=== PATIENT | female | born 1995 | race Caucasian/White ===

== ENCOUNTER 2018-07-01 00:01 | Emergency (ER) | payer BC ==
--- NOTE | 2018-07-01 00:26 | EDPHY ---
General - History Smoking Status: Never smoked <Luciana Jarrett - Last Filed: 07/01/18 02:18> - Diagnostics Imaging: I viewed and interpreted images myself <Santiago Leal - Last Filed: 07/01/18 03:37> Time Seen by Provider: 07/01/18 00:26 Narrative: CLINICAL IMPRESSION: Head injury ASSESSMENT/PLAN: Patient is a 22-year-old female who presents to the emergency department after sustaining a head injury with positive LOC just prior to arrival. Patient is uncomfortable appearing on arrival however not toxic-appearing. The fall was witnessed, there was a positive loss of consciousness. Patient is clinically intoxicated, her neurological exam is grossly normal with no focal deficit. Head CT revealed no evidence of intracranial hemorrhage or skull fracture. History and physical examination is consistent with concussion with positive LOC. The patient was observed for a period of time, she continued to have a severe headache and nausea. An IV was established and she was given Reglan and Benadryl in addition to the Zofran that she received on arrival. On repeat examination her neurological exam is still grossly normal without focal deficit , her vital signs remained stable. The patient will continue to be observed in the emergency department and we will await symptom improvement. I discussed this case personally with Dr. Leal who will resume care of this patient at this time. DIFFERENTIAL DX: Head injury including but not limited to concussion, skull fracture, intraparenchymal contusion, subarachnoid, subdural and epidural hematoma. ED COURSE: 0055: Dr. Leal evaluated this patient. Will proceed with IV fluids, more aggressive pain control and additional antiemetic. 0205: Dr. Leal will resume care of this patient at this time. I have discussed all aspects of this patient's care with him. CHIEF COMPLAINT: Head injury, headache, nausea HPI: Patient is a 22-year-old female who presents to the emergency department after she sustained a head injury when she fell to the ground. Patient reports she was out drinking with 1 of her friends, she was trying to assist 1 of her friends and walking when her friend tripped and fell to the ground. She subsequently fell to the ground causing her to hit the left side of her head. This was witnessed by the person she is within the emergency department, there was a brief positive LOC. Patient is clinically intoxicated, admitted to having approximately 5 to kill a drinks this evening. Patient presents with significant headache and multiple episodes of emesis. She is not on any anticoagulation or anti-platelet therapy. She has had no additional altered mentation, retrograde amnesia or posttraumatic seizure. Patient does have a history of remote subarachnoid cyst which was removed when she was 11 years old. Patient denies any visual changes or vision loss, she has no numbness or tingling of extremities, she has been able to ambulate with a normal gait. She has had multiple episodes of emesis, denies any hematemesis. She has had no chest pain, shortness of breath or abdominal pain. PMH: Denies Pertinent Past Surgical History: Subarachnoid cystectomy Family History: Noncontributory Social History: Alcohol use, denies illicit drug use or cigarette smoking REVIEW OF SYSTEMS: All other systems negative Constitutional: No fever, no chills, appetite change. Eyes: No discharge, vision change ENT: No sore throat, congestion, ear pain. Cardiovascular: No chest pain, no palpitations. Respiratory: No cough, no shortness of breath. Gastrointestinal: Nausea and vomiting. Genitourinary: No hematuria, dysuria, flank pain, pelvic pain Musculoskeletal: No back pain, joint swelling, joint pain, myalgias. Skin: No rashes, color change. Neurological: Headache. PHYSICAL EXAM: General Appearance: Well-developed, very uncomfortable appearing however not toxic-appearing. HENT: Normocephalic, atraumatic. Bilateral external ears are normal. Bilateral tympanic membranes are normal with pearly neal reflex- no evidence of hemotympanum bilaterally. No Merchant sign or raccoon eyes. Nares are clear, mucosa is pink. Oropharynx is clear, uvula is midline. There is no tonsillar enlargement or exudate. The dentition is normal. Eyes: PERRLA, EOMI intact without evidence of entrapment. Conjunctiva pink, no pallor or injection Neck: Supple, nontender, no lymphadenopathy, no midline pain, FROM, no meningismus. Respiratory: There are no retractions, lungs are clear to auscultation. Cardiac: Regular rate and rhythm, no murmurs or gallops. Gastrointestinal: Abdomen is soft, nontender, bowel sounds normal, no masses/ hernia, no rigidity, guarding or focal peritoneal findings. Neuro: MENTAL STATUS: Patient is alert and oriented to person, place, time, and situation. Recent and remote memory are intact. Attention and concentration are normal. Found knowledge is appropriate to level of education. Mood and affect normal. SPEECH: Language including naming, repetition, comprehension, and spontaneous speech are normal. No dysarthria or dysphagia. CRANIAL NERVES: II: Visual huerta are full to confrontation. Vision is grossly intact. III, IV, : Pupils are equal, round, reactive to light. Extraocular eye movements are full and without nystagmus. V: Facial sensation is intact to touch symmetrically in all 3 divisions. VII: Face is symmetric at rest with no asymmetry of grimace or evidence of facial weakness. VIII: Hearing is intact bilaterally to finger rub. IX, X: Palate is midline and elevates symmetrically with intact cough/gag. XI: Sternocleidomastoid and trapezius strength is normal. XII: Tongue protrudes midline without atrophy or fasciculations. MOTOR: Normal bulk and tone symmetrically in the upper and lower extremities. Upper extremities: shoulder abduction, elbow flexion, elbow extension, flexion of fingers and finger abduction strength 5/5 bilaterally. Lower extremities: hip flexion, knee flexion and extension, plantar and dorsiflexion of foot, and great toe extension strength 5/5 bilaterally. SENSORY: Sensation is intact to light touch and symmetric in the UE's in LE's bilaterally. Romberg is negative. COORDINATION: Fine motor and rapid alternating movements are normal. Finger to nose is normal bilaterally. [id number] is normal bilaterally. No abnormal movements noted. There is no tremor at rest or with posture or action. Skin: Warm, dry, no rashes, no nodules on palpation. Musculoskeletal: Extremities are symmetrical, full range of motion, no tenderness, deformity, swelling, or erythema. Psychiatric: Patient is oriented X 3, there is no agitation. MEDICAL DECISION MAKING: Patient was seen independently. Secondary supervising physician at time of evaluation was Dr. Leal, he also evaluated this patient. Diagnosis: Head injury, concussion. New, requires workup Summary: See Assessment and Plan for summary of ED visit Clinical lab tests: Not applicable. Independent visualization of images, tracing, or specimens: Yes. Decision to obtain medical records or history from someone other than the patient: Yes, boyfriend Review / Summarize previous medical records: No Discussed patient with another provider: Yes, Dr. Leal Patient Progress: Stable, dispo pending. (Luciana Jarrett) Medical Decision Makin: Patient re-evaluated resting comfortably no acute distress. Neurological exam is unremarkable. She is feeling much better after IV fluids and headache medication. She is not vomiting. She would like to go home. On re-evaluation her neurological exam is unremarkable. Return precautions discussed with the patient she understands return emergency room if develops worsening headache, fever, vomiting or not doing well. CT head without contrast faxed me by direct radiology 1:19 a.m., this shows no acute intracranial abnormality specifically no evidence of fracture or intracranial hemorrhage. (Santiago Leal) - Objective Vital Signs: Initial Vital Signs Temperature (C) 37.1 C 07/01/18 00:06 Heart Rate 90 07/01/18 00:06 Respiratory Rate 16 07/01/18 00:06 Blood Pressure 109/80 07/01/18 00:06 O2 Sat (%) 94 07/01/18 00:06 O2 Delivery Mode Room Air Allergies/Adverse Reactions: No Known Allergies Allergy (Unverified 07/01/18 00:05) Home Medications: Medication Instructions Recorded Aviane-28 Tablet 07/01/18 Ondansetron Odt [Zofran Odt] 4 mg PO Q8 PRN #10 tab 07/01/18 Medications Given: Discontinued Medications Acetaminophen (Tylenol) 1,000 mg PO EDNOW ONE Stop: 07/01/18 01:29 Last Admin: 07/01/18 01:33 Dose: 1,000 mg Diphenhydramine HCl (Benadryl Injection) 25 mg IVP EDNOW ONE Stop: 07/01/18 02:01 Last Admin: 07/01/18 02:12 Dose: 25 mg Sodium Chloride (Ns) 1,000 mls @ 0 mls/hr IV ONCE ONE PRN Reason: Wide Open Stop: 07/01/18 01:59 Last Admin: 07/01/18 02:11 Dose: 1,000 mls Metoclopramide HCl (Reglan Injection) 10 mg IVP EDNOW ONE Stop: 07/01/18 02:01 Last Admin: 07/01/18 02:12 Dose: 10 mg Ondansetron HCl (Zofran Odt) 4 mg PO EDNOW ONE Stop: 07/01/18 01:19 Last Admin: 07/01/18 01:22 Dose: 4 mg Departure <Luciana Jarrett - Last Filed: 07/01/18 02:18> <Santiago Leal - Last Filed: 07/01/18 03:37> - Departure Disposition: Home, Routine, Self-Care Clinical Impression: Head injury Qualifiers: Encounter type: initial encounter Qualified Code(s): S09.90XA - Unspecified injury of head, initial encounter Concussion Qualifiers: Encounter type: initial encounter Loss of consciousness presence/duration: with LOC of 30 min or less Qualified Code(s): S06.0X1A - Concussion with loss of consciousness of 30 minutes or less, initial encounter Condition: Good Instructions: Concussion (ED) Additional Instructions: DISCHARGE INSTRUCTIONS FROM YOUR DOCTOR Thank you for visiting our emergency department today. Please keep in mind that discharge from the emergency department does not mean that there is nothing wrong - it simply means that we have not identified an emergency condition that requires further evaluation or treatment in the hospital. You should always plan to follow up with primary care for re-evaluation of your condition in the next 2-3 days. If you have been referred to a specialist, please call as soon as possible ( today or tomorrow) to schedule your follow up appointment at the appropriate time. GRADUAL [id number] PROTOCOL Patient must be symptom free for 24 hours before progressing to the next step. If patient has symptoms during Step's 2-6, stop activity and return previous step. Patient can not progress to next step unless current step can be completed with out any symptoms (ie headache, dizziness, confusion...) Bright lights, TV, computers, music, reading can trigger or worsen concussion symptoms thus should be avoided or used in moderation. Step 1. NO same day return to play, rest only , do not proceed to Step 2 until all symptoms have resolved Step 2. LIGHT aerobic exercise (ie walking, swimming or stationary cycling), while keeping intensity < 70% max heart rate Step 3. Sport-specific exercise (ie skating drills in ice hockey-no passing, running drills in soccer-no passing), NO HEAD IMPACT ACTIVITIES Step 4. NON-contact training, with progression to more complex drills (ie passing drills) NO HEAD IMPACT ACTIVITIES Step 5. Full-contact practice AFTER getting medical clearance Step 6. Return to game play This was based from: Consensus statement on concussion in sport: the 4th International Conference on Concussion in Sport held in [place], Mar 2012. Br J Sports MEd. 2013;47(5):250- 258 For pain control: You may take Tylenol, I recommend 500-1000 mg every 6-8 hours as needed. Take with food and a full glass of water. Stop taking if this is upsetting her stomach. Do not exceed 4000 mg in a 24 hr period. You may also take ibuprofen, recommend 400 mg every 6 hr. Take with food and a full glass of water. Stop taking if this upsets her stomach. Do not exceed 2400 mg in a 24 hr period. People present with illnesses and injuries in different ways, and it is always possible that we have missed something. You may always return for re-evaluation if symptoms worsen or if they are not improving or if you develop new/different symptoms. Again, thank you for choosing our emergency department. We hope that you feel better. Referrals: Nuria Pérez MD [Medical Doctor] - As per Instructions (Please follow-up with Dr. Pérez should you have ongoing issues and post concussive syndrome.) Beverly Robert MD [Medical Doctor] - As per Instructions (Please establish care with a primary care provider should you need 1) Prescriptions: Ondansetron Odt [Zofran Odt] 4 mg PO Q8 PRN #10 tab PRN Reason: Nausea/Vomiting, Can'T Take Po
[2018-07-01] MEDS ORDERED: ONDANSETRON DISINTEGRATING 4 MG TAB PO ONE (01:18)
[2018-07-01] MEDS ORDERED: ACETAMINOPHEN 500 MG TAB PO ONE (01:28)
[2018-07-01] MEDS ORDERED: NS 1,000 ML IV ONE (01:58)
[2018-07-01] MEDS ORDERED: ONDANSETRON 4 MG/2 ML VIAL IVP PRN (01:58)
[2018-07-01] MEDS ORDERED: METOCLOPRAMIDE 10 MG/2 ML VIAL IVP ONE (02:00)
[2018-07-01 03:25] VITALS: BP 95/48
--- NOTE | 2018-07-02 11:32 | ASMTCAGE ---
CAGE Additional Comments pt discharged before CAGE could be completed Date Signed: 07/02/2018 11:31 AM Electronically Signed By:Marcela Robertson RN
== END 2018-07-01 04:12 | disposition home or self-care (01) ==
DX: S06.0X1A Concussion with loss of consciousness of 30 minutes or less, initial encounter (principal); F10.920 Alcohol use, unspecified with intoxication, uncomplicated; E86.9 Volume depletion, unspecified; W01.198A Fall on same level from slipping, tripping and stumbling with subsequent striking against other object, initial encounter; Y92.480 Sidewalk as the place of occurrence of the external cause
CPT/HCPCS: 96374; J1200; J2765